=== PATIENT | male | born 1995 | race Caucasian/White ===

== ENCOUNTER 2017-04-07 11:42 | Emergency (ER) | payer OTHER ==
[2017-04-07 12:20] VITALS: BP 144/96
--- NOTE | 2017-04-07 12:20 | Emergency Department Report ---
Chief Complaint: Extremity Injury, Lower Stated Complaint: RT ANKLE PAIN Time Seen by Provider: 04/07/17 12:15 - HPI History of Present Illness: PT states he stepped wrong while at work today. PT c/o R ankle injury. PT states he has not been able to walk since injury. PT states he had a similar injury a few months ago but he was able to walk. - ROS Review of Systems: + abnormal gait + R ankle pain + R ankle swelling - Exam Physical Exam: PT looks well, non toxic. R ankle with swelling and tenderness over the lateral malleolus MSE screening note: Focused history and physical exam performed. Due to findings the following was ordered: XR ED Disposition for MSE Condition: Stable
--- NOTE | 2017-04-07 14:07 | XRay Report ---
RIGHT ANKLE, 3 views: History: Right ankle injury, swelling. Findings: Mild soft tissue swelling is identified. No acute osseous abnormality or joint pathology is identified. The fifth metatarsal base is intact. Impression: Soft tissue swelling. No acute osseous injury.
--- NOTE | 2017-04-07 14:19 | Emergency Department Report ---
ED Lower Extremity HPI - General Chief Complaint: Extremity Injury, Lower Stated Complaint: RT ANKLE PAIN Time Seen by Provider: 04/07/17 12:15 Source: patient Mode of arrival: Wheelchair Limitations: No Limitations - History of Present Illness Initial Comments: Patient is a 21 y/o male who presents due to right ankle pain x 4 hours. Patient states that he twisted his right ankle while stepping down from a cooler. Patient denies any head injury or other injury. Patient denies any numbness or tingling. Complaint: ankle injury Onset/Timin -: hour(s) Injury: Ankle: Right Type of Injury: unknown Place: work Severity: severe Severity scale (0 -10): 6 Improves With: immobilization Worsens With: weight bearing, movement, palpation Context: walking Associated Symptoms: swelling Treatments Prior to Arrival: cold therapy - Related Data Previous Rx's Medication Instructions Recorded Last Taken Type Ibuprofen [Motrin 800 MG tab] 800 mg PO Q8HR PRN #30 tablet 04/07/17 Unknown Rx traMADol [Ultram 50 MG tab] 50 mg PO Q6HR PRN #15 tablet 04/07/17 Unknown Rx Allergies Allergy/AdvReac Type Severity Reaction Status Date / Time No Known Allergies Allergy Unverified 04/07/17 12:19 ED Review of Systems ROS: Stated complaint: RT ANKLE PAIN Other details as noted in HPI Comment: All other systems reviewed and negative Constitutional: no symptoms reported. denies: chills, diaphoresis, fever, malaise, weakness Eyes: denies: eye pain, eye discharge, vision change ENT: denies: ear pain, throat pain, dental pain, hearing loss, epistaxis, congestion Respiratory: no symptoms reported. denies: cough, orthopnea, shortness of breath, SOB with exertion, SOB at rest, stridor, wheezing Cardiovascular: denies: chest pain Gastrointestinal: denies: abdominal pain, nausea, vomiting, diarrhea Musculoskeletal: joint swelling (right ankle), arthralgia Skin: denies: rash Neurological: denies: headache ED Past Medical Hx - Past Medical History Hx Hypertension: Yes (NOT TAKING MEDS) - Surgical History Past Surgical History?: No - Social History Smoking Status: Never Smoker Substance Use Type: None - Medications Home Medications: Home Medications Medication Instructions Recorded Confirmed Last Taken Type Ibuprofen [Motrin 800 MG tab] 800 mg PO Q8HR PRN #30 tablet 04/07/17 Unknown Rx traMADol [Ultram 50 MG tab] 50 mg PO Q6HR PRN #15 tablet 04/07/17 Unknown Rx ED Physical Exam - General Limitations: No Limitations General appearance: alert, in no apparent distress - Head Head exam: Present: atraumatic, normocephalic, normal inspection - Eye Eye exam: Present: normal appearance, PERRL, EOMI Pupils: Present: normal accommodation - Neck Neck exam: Present: normal inspection, full ROM. Absent: tenderness, meningismus, lymphadenopathy, thyromegaly - Respiratory Respiratory exam: Present: normal lung sounds bilaterally. Absent: respiratory distress, wheezes, rales, rhonchi, stridor, chest wall tenderness - Cardiovascular Cardiovascular Exam: Present: regular rate, normal rhythm, normal heart sounds - Expanded Lower Extremity Exam Right Upper Leg exam: Present: normal inspection, full ROM. Absent: tenderness Knee exam: Present: normal inspection, full ROM. Absent: tenderness Lower Leg exam: Present: normal inspection, full ROM. Absent: tenderness Ankle exam: Present: tenderness, swelling, erythema. Absent: full ROM, abrasion , laceration, ecchymosis, deformity, crepidus, dislocation, anterior draw sign Foot/Toe exam: Present: normal inspection, full ROM. Absent: tenderness Neuro vascular tendon exam: Present: no vascular compromise Gait: Positive: unable to bear weight - Back Exam Back exam: Present: normal inspection, full ROM. Absent: tenderness, CVA tenderness (R), CVA tenderness (L), muscle spasm, paraspinal tenderness, vertebral tenderness - Neurological Exam Neurological exam: Present: alert, oriented X3, normal gait - Psychiatric Psychiatric exam: Present: normal affect, normal mood - Skin Skin exam: Present: warm, dry, intact ED Course Vital Signs 04/07/17 12:15 Temperature 98.0 F Pulse Rate 88 Respiratory 17 Rate Blood Pressure 144/96 O2 Sat by Pulse 99 Oximetry ED Lower Extremity MDM - Medical Decision Making Patient was in no acute distress, patient had swelling on the right lateral malleolus. No tenderness with palpation of the right medial malleolus. Patient had no neurological symptoms. Riley wrap will be applied to the right ankle and ankle stirrups. Patient will be given crutches. X-ray of the right ankle shows no acute osseous findings, it shows soft tissue swelling. Patient will be discharge with prescription of ibuprofen and tramadol. Patient will be information to follow up with an learning specialist - Differential Diagnosis ankle sprain, ankle fracture, foot fracture Critical care attestation.: If time is entered above; I have spent that time in minutes in the direct care of this critically ill patient, excluding procedure time. ED Disposition Clinical Impression: Ankle sprain Qualifiers: Encounter type: initial encounter Laterality: right Disposition: DC-01 TO HOME OR SELFCARE Is pt being admited?: No Does the pt Need Aspirin: No Condition: Good Instructions: Ankle Sprain (ED), Ankle Stirrup Splint (ED) Additional Instructions: Take ibuprofen 800 mg every 8 hours as needed for moderate pain, take tramadol 1 tablet every 6 hours as needed for severe pain. Follow-up with provided learning specialist for further evaluation of urinary ankle, apply ice compress and elevate your ankle when sitting and lying down. Prescriptions: Ibuprofen [Motrin 800 MG tab] 800 mg PO Q8HR PRN #30 tablet PRN Reason: Pain traMADol [Ultram 50 MG tab] 50 mg PO Q6HR PRN #15 tablet PRN Reason: Pain Referrals: PRIMARY CARE, [Primary Care Provider] - 3-5 Days LETY FAN MD [Staff Physician] - 3-5 Days Time of Disposition: 14:27
== END 2017-04-07 15:40 | disposition home or self-care (01) ==
LOC: ED 11:42
DX: S93.491A Sprain of other ligament of right ankle, initial encounter (principal); I10 Essential (primary) hypertension; X50.1XXA Overexertion from prolonged static or awkward postures, initial encounter; Y93.89 Activity, other specified; Y92.89 Other specified places as the place of occurrence of the external cause; Y99.8 Other external cause status